=== PATIENT | female | born 1965 | race Caucasian/White ===

== ENCOUNTER 2021-06-10 16:26 | Inpatient (IN) | payer MEDICAID ==
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
--- NOTE | 2021-06-11 09:06 | Consultation ---
History of Present Illness - Reason for Consult Consult date: 06/11/21 Medical consult Requesting physician: YOSVNAY TAVERAS - History of Present Illness 56-year-old -Slov[place] female patient with significant past medical history of substance abuse with cocaine, schizophrenia, bipolar osteoarthritis status post bilateral knee replacement obesity status post gastric bypass surgery and hypertension was admitted [facility] to evaluate and manage suicidal ideation and psych problems Hospitalist service was consulted for medical management The time of my evaluation patient is confused pulled off all her clots Drowsy, unable to communicate or give history. Patient was not cooperative for evaluation Past History Past Medical History: arthritis, diabetes (Resolved), hypertension, other (Morbid obesity, schizophrenia, bipolar) Past Surgical History: Other (Bilateral knee replacement. Gastric bypass surgery) Social history: other (Recreational drug use cocaine) Family history: no significant family history Medications and Allergies Allergies Allergy/AdvReac Type Severity Reaction Status Date / Time promethazine [From Phenergan] Allergy Unknown Verified 06/11/21 05:07 Home Medications Medication Instructions Recorded Confirmed Last Taken Type Naproxen [Naprosyn TAB] 500 mg PO BID 06/11/21 06/11/21 Unknown History traMADoL [Ultram 50 MG tab] 50 mg PO Q8HR PRN 06/11/21 06/11/21 Unknown History Review of Systems ROS unobtainable: due to mental status (Patient is confused, not able to communicate or respond to simple questions) Exam - Constitutional Vitals: Temp Pulse Resp BP Pulse Ox 99.6 F 93 H 16 120/73 100 06/11/21 03:00 06/11/21 03:00 06/11/21 03:00 06/11/21 03:00 06/11/21 03:00 General appearance: Present: mild distress, other (Confused, pulled off her clothes and naked, noncommunicative,) - EENT Eyes: Present: PERRL, EOM intact - Respiratory Respiratory effort: normal Respiratory: bilateral: diminished, negative: rales, wheezing - Cardiovascular Rhythm: regular Heart Sounds: Present: S1 & S2 - Extremities Extremities: no ischemia, No edema - Abdominal General gastrointestinal: Present: soft, non-tender, non-distended, normal bowel sounds - Integumentary Integumentary: Present: clear, warm - Musculoskeletal Musculoskeletal: other - Psychiatric Psychiatric: agitated, other - Neurologic Neurologic: moves all extremities Results - Labs Labs: Abnormal lab results 06/11/21 Range/Units 06:01 POC Glucose 108 H (70-105) mg/dL Assessment and Plan --Hypertension; Clonidine as needed, start low-dose hydralazine 10 mg 3 times a day Hold if the blood pressure is less than 110 systolic --History of arthritis; supportive care Pain medications as needed Start with Tylenol 650 mg every 6 hours as needed for pain --History of cocaine abuse; Urine drug screen, supportive care --DVT prophylaxis; SCDs while resting --Full CODE STATUS We will closely monitor patient and adjust the management as needed Plan of care reviewed with the patient's nurse Thank you for this consultation We will follow the patient along with you Call us with questions or concerns
[2021-06-11] MEDS ORDERED: LORazepam 2 MG/ML VIAL IV PRN (09:30)
[2021-06-11] MEDS: SERTRALINE 25 MG TAB PO SCH (09:37)
[2021-06-11] MEDS ORDERED: cloNIDine 0.1 MG TAB PO PRN (10:00)
[2021-06-11] MEDS: traZODone 50 MG TAB PO SCH (21:30)
[2021-06-11 22:57] LABS: Basophils % (Auto) 0.5 % (0.0-1.8); Eosinophils # (Auto) 0.5 K/mm3 (0.0-0.4); Eosinophils % (Auto) 9.2 % (0.0-4.3); Hematocrit 33.4 % (30.3-42.9); Hemoglobin 10.3 gm/dl (10.1-14.3); Lymphocytes # (Auto) 1.8 K/mm3 (1.2-5.4); Lymphocytes % (Auto) 34.8 % (13.4-35.0); Mean Corpuscular HGB Conc 31 % (30-34); Mean Corpuscular Volume 76 fl (79-97); Monocytes # (Auto) 0.7 K/mm3 (0.0-0.8); Monocytes % (Auto) 13.2 % (0.0-7.3); Platelet Count 396 K/mm3 (140-440); Red Blood Count 4.43 M/mm3 (3.65-5.03); Red Cell Distribution Width 18.9 % (13.2-15.2)
[2021-06-12 02:51] LABS: Alanine Aminotransferase 13 units/L (7-56); Albumin 3.8 g/dL (3.9-5); BUN/Creatinine Ratio 21; Blood Urea Nitrogen 17 mg/dL (7-17); Calcium 9.2 mg/dL (8.4-10.2); Hemolysis Index 53
[2021-06-12 05:09] LABS: Chol/HDL Ratio 2.92 %; HDL Cholesterol 51 mg/dL (40-59); LDL Cholesterol,Direct 84 mg/dL (50-130)
[2021-06-12] MEDS ORDERED: oxyCODONE /ACETAMINOPHEN 5-325MG TAB PO ONE (05:16)
--- NOTE | 2021-06-12 08:54 | Progress Note ---
Subjective Date of service: 06/12/21 Subjective Comment: 06/12/2021: The patient was seen in her room getting ready for breakfast, she is calm. The patient reports feeling better, she is remorseful for her behavior yesterday. She reports sleep and appetite as good. She complain of bilateral kn ee pain; history of bilateral knee replacement. ( nurse is aware for medical consult.) The patient denies having craving fro crack, she denies any current suicidal/homicidal ideation and denies hallucinations. Per nurse, the patient had a quiet night. No changes made today. REVIEW OF SYSTEMS Constitutional: Negative for weight loss ENT: Negative for stridor Respiratory: Negative for cough or hemoptysis All other systems reviewed and are negative MENTAL STATUS EXAMINATION General Appearance and Behavior: Age appropriate, good hygiene, wearing appropriate clothes. Cooperation: Cooperative Psychomotor Behavior: Psychomotor normal Mood: calm Affect and affective range: congruent with stated mood, tearful Thought Process: goal directed Thought Content: Not suicidal Speech: Normal volume, Regular rate and rhythm, Suicidal Ideation: Denies Homicidal Ideation: Denies Hallucinations: Denies Delusions: None Impulse Control: Questionable Insight and Judgment: Limited insight, fair judgment Memory: unimpaired Attention: Distractible Orientation: alert and oriented Assessment and Plan (1) Bipolar disorder, current episode depressed severe- F31.4 ( 2 ) Cocaine use disorder- F14.20 Treatment Plan Patient admitted for inpatient psychiatric evaluation, medication adjustment and close monitoring The patient's behavior, mood, sleep and appetite will be closely monitored. Patient enrolled in individual and group therapeutic sessions and encouraged to attend. Patient provided with a safe and structured environment. Patient's physical health needs will be addressed by the Hospitalist. Hospitalist Consulted Labs including CBC, CMP, Lipid profile and Hemoglobin A1C levels ordered for baseline reference Social Assessment will be completed and the Linotype Machinist will work with patient and family to ensure a suitable and safe disposition Medication adjustment will be made as clinically indicated No changes made today Continue Ativan 2mg IM Q 4 hours PRN for agitation Continue Clonidine 0.1mg po Q 6 hours for agitation Continue Vistaril 50mg po Q 6 hours for anxiety Continue Zoloft 25mg po Q daily for depression Continue Trazodone 50mg po QHS Usual Wellness Rastafari/Preservation: - Start Trazodone 50 mg po QHS & 50 mg po QHS PRN between 10 PM & 2 AM for insomnia - Start Melatonin 5 mg po QHS to promote circadian rhythm The patient agreed on the treatment plan, understood the risk, benefit, alternative treatment, potential consequence of no treatment, and gave informed consent. Estimated days: 5 Post hospital care: primary care provider, psychiatric provider Case staffed with Dr. Henderson Legal Status: Voluntary Reaction to Hospitalization: Accepting Medications and Allergies Medications and Allergies Allergies Allergy/AdvReac Type Severity Reaction Status Date / Time promethazine [From Phenergan] Allergy Unknown Verified 06/11/21 05:07 Home Medications Medication Instructions Recorded Confirmed Last Taken Type Naproxen [Naprosyn TAB] 500 mg PO BID 06/11/21 06/11/21 Unknown History traMADoL [Ultram 50 MG tab] 50 mg PO Q8HR PRN 06/11/21 06/11/21 Unknown History Active Meds: Active Medications Clonidine HCl (Clonidine 0.1 Mg Tab) 0.1 mg PO Q4H PRN PRN Reason: Anxiety Last Admin: 06/11/21 09:36 Dose: 0.1 mg Documented by: Hydroxyzine Pamoate (Hydroxyzine Pamoate 50 Mg Cap) 50 mg PO Q6H PRN PRN Reason: Anxiety Lorazepam (Lorazepam 2 Mg/Ml Vial) 2 mg IV Q4H PRN PRN Reason: Agitation Last Admin: 06/11/21 09:26 Dose: 2 mg Documented by: Sertraline HCl (Sertraline 25 Mg Tab) 25 mg PO QDAY [facility] Last Admin: 06/11/21 09:37 Dose: 25 mg Documented by: Trazodone HCl (Trazodone 50 Mg Tab) 50 mg PO QHS [facility] Last Admin: 06/11/21 21:30 Dose: 50 mg Documented by: Results - Results Labs/Vitals: Laboratory Last Values WBC 5.2 K/mm3 (4.5-11.0) 06/11/21 Unknown RBC 4.43 M/mm3 (3.65-5.03) 06/11/21 Unknown Hgb 10.3 gm/dl (10.1-14.3) 06/11/21 Unknown Hct 33.4 % (30.3-42.9) 06/11/21 Unknown MCV 76 fl (79-97) L 06/11/21 Unknown MCH 23 pg (28-32) L 06/11/21 Unknown MCHC 31 % (30-34) 06/11/21 Unknown RDW 18.9 % (13.2-15.2) H 06/11/21 Unknown Plt Count 396 K/mm3 (140-440) 06/11/21 Unknown Lymph % (Auto) 34.8 % (13.4-35.0) 06/11/21 Unknown Mckean % (Auto) 13.2 % (0.0-7.3) H 06/11/21 Unknown Eos % (Auto) 9.2 % (0.0-4.3) H 06/11/21 Unknown Baso % (Auto) 0.5 % (0.0-1.8) 06/11/21 Unknown Lymph # (Auto) 1.8 K/mm3 (1.2-5.4) 06/11/21 Unknown Mckean # (Auto) 0.7 K/mm3 (0.0-0.8) 06/11/21 Unknown Eos # (Auto) 0.5 K/mm3 (0.0-0.4) H 06/11/21 Unknown Baso # (Auto) 0.0 K/mm3 (0.0-0.1) 06/11/21 Unknown Seg Neutrophils % 42.3 % (40.0-70.0) 06/11/21 Unknown Seg Neutrophils # 2.2 K/mm3 (1.8-7.7) 06/11/21 Unknown Sodium 137 mmol/L (137-145) 06/11/21 Unknown Potassium 4.6 mmol/L (3.6-5.0) 06/11/21 Unknown Chloride 103.6 mmol/L (98-107) 06/11/21 Unknown Carbon Dioxide 18 mmol/L (22-30) L 06/11/21 Unknown Anion Gap 20 mmol/L 06/11/21 Unknown BUN 17 mg/dL (7-17) 06/11/21 Unknown Creatinine 0.8 mg/dL (0.6-1.2) 06/11/21 Unknown Estimated GFR > 60 ml/min 06/11/21 Unknown BUN/Creatinine Ratio 21 % 06/11/21 Unknown Glucose 75 mg/dL (65-100) 06/11/21 Unknown POC Glucose 108 mg/dL (70-105) H 06/11/21 06:01 Calcium 9.2 mg/dL (8.4-10.2) 06/11/21 Unknown Total Bilirubin 0.20 mg/dL (0.1-1.2) 06/11/21 Unknown AST 30 units/L (5-40) 06/11/21 Unknown ALT 13 units/L (7-56) 06/11/21 Unknown Alkaline Phosphatase 130 units/L (35-129) H 06/11/21 Unknown Total Protein 7.0 g/dL (6.3-8.2) 06/11/21 Unknown Albumin 3.8 g/dL (3.9-5) L 06/11/21 Unknown Albumin/Globulin Ratio 1.2 % 06/11/21 Unknown Triglycerides 74 mg/dL (2-149) 06/11/21 Unknown Cholesterol 149 mg/dL (50-199) 06/11/21 Unknown LDL Cholesterol Direct 84 mg/dL (50-130) 06/11/21 Unknown HDL Cholesterol 51 mg/dL (40-59) 06/11/21 Unknown Cholesterol/HDL Ratio 2.92 % 06/11/21 Unknown Last Vital Signs Temp 98.0 F 06/11/21 22:00 Pulse 74 06/11/21 22:00 Resp 20 06/11/21 22:00 BP 95/71 06/11/21 22:00 Pulse Ox 98 06/11/21 22:00
[2021-06-12] MEDS: SERTRALINE 25 MG TAB PO SCH (10:27)
[2021-06-12 16:17] LABS: Hepatitis C Virus Antibody Non-Reactive (NonReactive)
[2021-06-12 16:27] LABS: Hepatitis B Surface Antigen Nonreactive (Negative)
[2021-06-12] MEDS: ACETAMINOPHEN 325 MG TAB PO PRN (21:01)
[2021-06-12] MEDS: traZODone 50 MG TAB PO SCH (21:02)
[2021-06-13] MEDS ORDERED: traMADol 50 MG TAB PO PRN ×2 (01:00→09:00)
[2021-06-13] MEDS: ACETAMINOPHEN 325 MG TAB PO PRN ×2 (09:17→16:57)
[2021-06-13] MEDS: SERTRALINE 25 MG TAB PO SCH (09:17)
--- NOTE | 2021-06-13 09:30 | Progress Note ---
Subjective Date of service: 06/13/21 Subjective Comment: 06/12/2021: The patient was seen in her room getting ready for breakfast, she is calm. The patient reports feeling better, she is remorseful for her behavior yesterday. She reports sleep and appetite as good. She complain of bilateral knee pain; history of bilateral knee replacement. ( nurse is aware for medical consult.) The patient denies having craving fro crack, she denies any current suicidal/homicidal ideation and denies hallucinations. Per nurse, the patient had a quiet night. No changes made today. 06/13/2021: The patient was seen in the activity room, she continues to complain of left hip pain and right knee pain. The patient is angry, stating she wants to go home. She denies having any current crack cravings and denies SI/HI/AVHs. REVIEW OF SYSTEMS Constitutional: Negative for weight loss ENT: Negative for stridor Respiratory: Negative for cough or hemoptysis All other systems reviewed and are negative MENTAL STATUS EXAMINATION General Appearance and Behavior: Age appropriate, good hygiene, wearing appropriate clothes. Cooperation: Cooperative Psychomotor Behavior: Psychomotor normal Mood: "angry" Affect and affective range: congruent with stated mood, tearful Thought Process: goal directed Thought Content: Not suicidal Speech: Normal volume, Regular rate and rhythm, Suicidal Ideation: Denies Homicidal Ideation: Denies Hallucinations: Denies Delusions: None Impulse Control: Questionable Insight and Judgment: Limited insight, fair judgment Memory: unimpaired Attention: Distractible Orientation: alert and oriented Assessment and Plan (1) Bipolar disorder, current episode depressed severe- F31.4 ( 2 ) Cocaine use disorder- F14.20 Treatment Plan Patient admitted for inpatient psychiatric evaluation, medication adjustment and close monitoring The patient's behavior, mood, sleep and appetite will be closely monitored. Patient enrolled in individual and group therapeutic sessions and encouraged to attend. Patient provided with a safe and structured environment. Patient's physical health needs will be addressed by the Hospitalist. Hospitalist Consulted Labs including CBC, CMP, Lipid profile and Hemoglobin A1C levels ordered for baseline reference Social Assessment will be completed and the Cantilever Crane Operator will work with patient and family to ensure a suitable and safe disposition Medication adjustment will be made as clinically indicated No changes made today Continue Ativan 2mg IM Q 4 hours PRN for agitation Continue Clonidine 0.1mg po Q 6 hours for agitation Continue Vistaril 50mg po Q 6 hours for anxiety Continue Zoloft 25mg po Q daily for depression Continue Trazodone 50mg po QHS Usual Wellness Quaker/Preservation: - Start Trazodone 50 mg po QHS & 50 mg po QHS PRN between 10 PM & 2 AM for insomnia - Start Melatonin 5 mg po QHS to promote circadian rhythm The patient agreed on the treatment plan, understood the risk, benefit, alternative treatment, potential consequence of no treatment, and gave informed consent. Estimated days: 5 Post hospital care: primary care provider, psychiatric provider Case staffed with Dr. Henderson Legal Status: Voluntary Reaction to Hospitalization: Accepting Medications and Allergies Medications and Allergies Allergies Allergy/AdvReac Type Severity Reaction Status Date / Time promethazine [From Phenergan] Allergy Unknown Verified 06/11/21 05:07 Home Medications Medication Instructions Recorded Confirmed Last Taken Type Naproxen [Naprosyn TAB] 500 mg PO BID 06/11/21 06/11/21 Unknown History traMADoL [Ultram 50 MG tab] 50 mg PO Q8HR PRN 06/11/21 06/11/21 Unknown History Active Meds: Active Medications Acetaminophen (Acetaminophen 325 Mg Tab) 650 mg PO Q6H PRN PRN Reason: Pain, Mild (1-3) Last Admin: 06/13/21 09:17 Dose: 650 mg Documented by: Clonidine HCl (Clonidine 0.1 Mg Tab) 0.1 mg PO Q4H PRN PRN Reason: Anxiety Last Admin: 06/11/21 09:36 Dose: 0.1 mg Documented by: Hydroxyzine Pamoate (Hydroxyzine Pamoate 50 Mg Cap) 50 mg PO Q6H PRN PRN Reason: Anxiety Last Admin: 06/12/21 21:02 Dose: 50 mg Documented by: Lorazepam (Lorazepam 2 Mg/Ml Vial) 2 mg IV Q4H PRN PRN Reason: Agitation Last Admin: 06/11/21 09:26 Dose: 2 mg Documented by: Naproxen (Naproxen 500 Mg Tab) 500 mg PO BID [facility] Sertraline HCl (Sertraline 25 Mg Tab) 25 mg PO QDAY [facility] Last Admin: 06/13/21 09:17 Dose: 25 mg Documented by: Tramadol HCl (Tramadol 50 Mg Tab) 50 mg PO Q8H PRN PRN Reason: Pain , Severe (7-10) Trazodone HCl (Trazodone 50 Mg Tab) 50 mg PO QHS [facility] Last Admin: 06/12/21 21:02 Dose: 50 mg Documented by: Results - Results Labs/Vitals: Laboratory Last Values WBC 5.2 K/mm3 (4.5-11.0) 06/11/21 Unknown RBC 4.43 M/mm3 (3.65-5.03) 06/11/21 Unknown Hgb 10.3 gm/dl (10.1-14.3) 06/11/21 Unknown Hct 33.4 % (30.3-42.9) 06/11/21 Unknown MCV 76 fl (79-97) L 06/11/21 Unknown MCH 23 pg (28-32) L 06/11/21 Unknown MCHC 31 % (30-34) 06/11/21 Unknown RDW 18.9 % (13.2-15.2) H 06/11/21 Unknown Plt Count 396 K/mm3 (140-440) 06/11/21 Unknown Lymph % (Auto) 34.8 % (13.4-35.0) 06/11/21 Unknown Power % (Auto) 13.2 % (0.0-7.3) H 06/11/21 Unknown Eos % (Auto) 9.2 % (0.0-4.3) H 06/11/21 Unknown Baso % (Auto) 0.5 % (0.0-1.8) 06/11/21 Unknown Lymph # (Auto) 1.8 K/mm3 (1.2-5.4) 06/11/21 Unknown Power # (Auto) 0.7 K/mm3 (0.0-0.8) 06/11/21 Unknown Eos # (Auto) 0.5 K/mm3 (0.0-0.4) H 06/11/21 Unknown Baso # (Auto) 0.0 K/mm3 (0.0-0.1) 06/11/21 Unknown Seg Neutrophils % 42.3 % (40.0-70.0) 06/11/21 Unknown Seg Neutrophils # 2.2 K/mm3 (1.8-7.7) 06/11/21 Unknown Sodium 137 mmol/L (137-145) 06/11/21 Unknown Potassium 4.6 mmol/L (3.6-5.0) 06/11/21 Unknown Chloride 103.6 mmol/L (98-107) 06/11/21 Unknown Carbon Dioxide 18 mmol/L (22-30) L 06/11/21 Unknown Anion Gap 20 mmol/L 06/11/21 Unknown BUN 17 mg/dL (7-17) 06/11/21 Unknown Creatinine 0.8 mg/dL (0.6-1.2) 06/11/21 Unknown Estimated GFR > 60 ml/min 06/11/21 Unknown BUN/Creatinine Ratio 21 % 06/11/21 Unknown Glucose 75 mg/dL (65-100) 06/11/21 Unknown POC Glucose 108 mg/dL (70-105) H 06/11/21 06:01 Calcium 9.2 mg/dL (8.4-10.2) 06/11/21 Unknown Total Bilirubin 0.20 mg/dL (0.1-1.2) 06/11/21 Unknown AST 30 units/L (5-40) 06/11/21 Unknown ALT 13 units/L (7-56) 06/11/21 Unknown Alkaline Phosphatase 130 units/L (35-129) H 06/11/21 Unknown Total Protein 7.0 g/dL (6.3-8.2) 06/11/21 Unknown Albumin 3.8 g/dL (3.9-5) L 06/11/21 Unknown Albumin/Globulin Ratio 1.2 % 06/11/21 Unknown Triglycerides 74 mg/dL (2-149) 06/11/21 Unknown Cholesterol 149 mg/dL (50-199) 06/11/21 Unknown LDL Cholesterol Direct 84 mg/dL (50-130) 06/11/21 Unknown HDL Cholesterol 51 mg/dL (40-59) 06/11/21 Unknown Cholesterol/HDL Ratio 2.92 % 06/11/21 Unknown TSH 1.450 mlU/mL (0.270-4.200) 06/12/21 11:08 Hepatitis A IgM Ab Non-reactive (NonReactive) 06/12/21 11:08 Hep Bs Antigen Nonreactive (Negative) 06/12/21 11:08 Hep B Core IgM Ab Non-reactive (NonReactive) 06/12/21 11:08 Hepatitis C Antibody Non-reactive (NonReactive) 06/12/21 11:08 Last Vital Signs Temp 99.0 F 06/13/21 09:03 Pulse 94 H 06/13/21 09:03 Resp 18 06/13/21 09:03 BP 123/61 06/13/21 09:03 Pulse Ox 99 06/13/21 09:03
[2021-06-13] MEDS: NAPROXEN 500 MG TAB PO SCH ×2 (09:59→21:33)
--- NOTE | 2021-06-13 18:43 | Progress Note ---
Assessment and Plan Assessment and plan: --Hypertension; well controlled Continue current antihypertensives and as needed medications --History of arthritis; supportive care Continue pain medications as needed Patient will follow with her private orthopedic surgeon upon discharge --History of cocaine abuse; Patient counseled to quit recreational drug use --DVT prophylaxis; SCDs while resting --Full CODE STATUS Continue current management Plan of care reviewed with the patient and her nurse History Interval history: I have seen and examined the patient in the activity room in [facility] psych unit t his evening Patient's chart and medications reviewed Patient is complaining some pain in her right knee Alert and awake responding to simple questions appropriately Hospitalist Physical - Constitutional Vitals: Temp Pulse Resp BP Pulse Ox 99.0 F 94 H 18 123/61 99 06/13/21 09:03 06/13/21 09:03 06/13/21 09:03 06/13/21 09:03 06/13/21 09:03 General appearance: Present: no acute distress, well-nourished, obese, other (Alert and awake responding to simple questions appropriately) - EENT Eyes: Present: PERRL, EOM intact - Neck Neck: Present: supple, normal ROM - Respiratory Respiratory effort: normal Respiratory: bilateral: diminished, negative: rales, rhonchi, wheezing - Cardiovascular Rhythm: regular Heart Sounds: Present: S1 & S2 - Extremities Extremities: no ischemia, No edema, abnormal (Right knee, old postop changes) - Abdominal General gastrointestinal: soft, non-tender, non-distended, normal bowel sounds - Integumentary Integumentary: Present: clear, warm - Psychiatric Psychiatric: appropriate mood/affect, cooperative - Neurologic Neurologic: moves all extremities Results - Labs CBC & Chem 7: 06/11/21 Unknown 06/11/21 Unknown Labs: Laboratory Last Values WBC 5.2 K/mm3 (4.5-11.0) 06/11/21 Unknown RBC 4.43 M/mm3 (3.65-5.03) 06/11/21 Unknown Hgb 10.3 gm/dl (10.1-14.3) 06/11/21 Unknown Hct 33.4 % (30.3-42.9) 06/11/21 Unknown MCV 76 fl (79-97) L 06/11/21 Unknown MCH 23 pg (28-32) L 06/11/21 Unknown MCHC 31 % (30-34) 06/11/21 Unknown RDW 18.9 % (13.2-15.2) H 06/11/21 Unknown Plt Count 396 K/mm3 (140-440) 06/11/21 Unknown Lymph % (Auto) 34.8 % (13.4-35.0) 06/11/21 Unknown [place] % (Auto) 13.2 % (0.0-7.3) H 06/11/21 Unknown Eos % (Auto) 9.2 % (0.0-4.3) H 06/11/21 Unknown Baso % (Auto) 0.5 % (0.0-1.8) 06/11/21 Unknown Lymph # (Auto) 1.8 K/mm3 (1.2-5.4) 06/11/21 Unknown [place] # (Auto) 0.7 K/mm3 (0.0-0.8) 06/11/21 Unknown Eos # (Auto) 0.5 K/mm3 (0.0-0.4) H 06/11/21 Unknown Baso # (Auto) 0.0 K/mm3 (0.0-0.1) 06/11/21 Unknown Seg Neutrophils % 42.3 % (40.0-70.0) 06/11/21 Unknown Seg Neutrophils # 2.2 K/mm3 (1.8-7.7) 06/11/21 Unknown Sodium 137 mmol/L (137-145) 06/11/21 Unknown Potassium 4.6 mmol/L (3.6-5.0) 06/11/21 Unknown Chloride 103.6 mmol/L (98-107) 06/11/21 Unknown Carbon Dioxide 18 mmol/L (22-30) L 06/11/21 Unknown Anion Gap 20 mmol/L 06/11/21 Unknown BUN 17 mg/dL (7-17) 06/11/21 Unknown Creatinine 0.8 mg/dL (0.6-1.2) 06/11/21 Unknown Estimated GFR > 60 ml/min 06/11/21 Unknown BUN/Creatinine Ratio 21 % 06/11/21 Unknown Glucose 75 mg/dL (65-100) 06/11/21 Unknown POC Glucose 108 mg/dL (70-105) H 06/11/21 06:01 Calcium 9.2 mg/dL (8.4-10.2) 06/11/21 Unknown Total Bilirubin 0.20 mg/dL (0.1-1.2) 06/11/21 Unknown AST 30 units/L (5-40) 06/11/21 Unknown ALT 13 units/L (7-56) 06/11/21 Unknown Alkaline Phosphatase 130 units/L (35-129) H 06/11/21 Unknown Total Protein 7.0 g/dL (6.3-8.2) 06/11/21 Unknown Albumin 3.8 g/dL (3.9-5) L 06/11/21 Unknown Albumin/Globulin Ratio 1.2 % 06/11/21 Unknown Triglycerides 74 mg/dL (2-149) 06/11/21 Unknown Cholesterol 149 mg/dL (50-199) 06/11/21 Unknown LDL Cholesterol Direct 84 mg/dL (50-130) 06/11/21 Unknown HDL Cholesterol 51 mg/dL (40-59) 06/11/21 Unknown Cholesterol/HDL Ratio 2.92 % 06/11/21 Unknown TSH 1.450 mlU/mL (0.270-4.200) 06/12/21 11:08 Hepatitis A IgM Ab Non-reactive (NonReactive) 06/12/21 11:08 Hep Bs Antigen Nonreactive (Negative) 06/12/21 11:08 Hep B Core IgM Ab Non-reactive (NonReactive) 06/12/21 11:08 Hepatitis C Antibody Non-reactive (NonReactive) 06/12/21 11:08 Mustafa/IV: Voiding Method Toilet Active Medications - Current Medications Current Medications: Generic Name Dose Route Start Last Admin Trade Name Tuckerq PRN Reason Stop Dose Admin Acetaminophen 650 mg 06/12/21 19:38 06/13/21 16:57 Acetaminophen 325 Mg Tab PO 650 mg Q6H PRN Administration Pain, Mild (1-3) Clonidine HCl 0.1 mg 06/11/21 10:00 06/11/21 09:36 Clonidine 0.1 Mg Tab PO 0.1 mg Q4H PRN Administration Anxiety Hydroxyzine Pamoate 50 mg 06/11/21 10:00 06/12/21 21:02 Hydroxyzine Pamoate 50 Mg Cap PO 50 mg Q6H PRN Administration Anxiety Lorazepam 2 mg 06/11/21 09:30 06/11/21 09:26 Lorazepam 2 Mg/Ml Vial IV 2 mg Q4H PRN Administration Agitation Naproxen 500 mg 06/13/21 10:00 06/13/21 09:59 Naproxen 500 Mg Tab PO 500 mg BID TAE Administration Sertraline HCl 25 mg 06/11/21 10:00 06/13/21 09:17 Sertraline 25 Mg Tab PO 25 mg QDAY TAE Administration Tramadol HCl 50 mg 06/13/21 09:00 Tramadol 50 Mg Tab PO Q8H PRN Pain , Severe (7-10) Trazodone HCl 50 mg 06/11/21 22:00 06/12/21 21:02 Trazodone 50 Mg Tab PO 50 mg QHS TAE Administration
[2021-06-13] MEDS: traZODone 50 MG TAB PO SCH (21:33)
[2021-06-14] MEDS: SERTRALINE 25 MG TAB PO SCH (09:34)
[2021-06-14] MEDS: NAPROXEN 500 MG TAB PO SCH (09:35)
--- NOTE | 2021-06-14 09:49 | Discharge Summary ---
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 The patient's mood, cognition, behavior, moral support are improved and stabilized. St the time of discharge, the patient had no endangering behavior and no debilitating adverse effects. The patient agreed on potential consequences of no treatment and gave informed consent. 06/12/2021: The patient was seen in her room getting ready for breakfast, she is calm. The patient reports feeling better, she is remorseful for her behavior yesterday. She reports sleep and appetite as good. She complain of bilateral knee pain; history of bilateral knee replacement. ( nurse is aware for medical consult.) The patient denies having craving fro crack, she denies any current suicidal/homicidal ideation and denies hallucinations. Per nurse, the patient had a quiet night. No changes made today. 06/13/2021: The patient was seen in the activity room, she continues to complain of left hip pain and right knee pain. The patient is angry, stating she wants to go home. She denies having any current crack cravings and denies SI/HI/AVHs. 06/14/2021 The patient was seen today. She is calm and cooperative. She is polite. She says she's ready to go home. She denies SI/HI or hallucinations of any kind. She says "I feel a lot better. My mom in 2019 and I had a hard time dealing with it." Disposition: 01 HOME / SELF CARE / HOMELESS Time spent for discharge: 35 Allergies/Adverse Reactions: Allergies promethazine [From Phenergan] Allergy (Verified 06/11/21 05:07) Unknown Vital Signs: Last Vital Signs Temp 99.0 F 06/13/21 19:19 Pulse 87 06/13/21 19:19 Resp 18 06/13/21 19:19 BP 117/68 06/13/21 19:19 Pulse Ox 99 06/13/21 19:19 Last Lab: Laboratory Last Values WBC 5.2 K/mm3 (4.5-11.0) 06/11/21 Unknown RBC 4.43 M/mm3 (3.65-5.03) 06/11/21 Unknown Hgb 10.3 gm/dl (10.1-14.3) 06/11/21 Unknown Hct 33.4 % (30.3-42.9) 06/11/21 Unknown MCV 76 fl (79-97) L 06/11/21 Unknown MCH 23 pg (28-32) L 06/11/21 Unknown MCHC 31 % (30-34) 06/11/21 Unknown RDW 18.9 % (13.2-15.2) H 06/11/21 Unknown Plt Count 396 K/mm3 (140-440) 06/11/21 Unknown Lymph % (Auto) 34.8 % (13.4-35.0) 06/11/21 Unknown [place] % (Auto) 13.2 % (0.0-7.3) H 06/11/21 Unknown Eos % (Auto) 9.2 % (0.0-4.3) H 06/11/21 Unknown Baso % (Auto) 0.5 % (0.0-1.8) 06/11/21 Unknown Lymph # (Auto) 1.8 K/mm3 (1.2-5.4) 06/11/21 Unknown [place] # (Auto) 0.7 K/mm3 (0.0-0.8) 06/11/21 Unknown Eos # (Auto) 0.5 K/mm3 (0.0-0.4) H 06/11/21 Unknown Baso # (Auto) 0.0 K/mm3 (0.0-0.1) 06/11/21 Unknown Seg Neutrophils % 42.3 % (40.0-70.0) 06/11/21 Unknown Seg Neutrophils # 2.2 K/mm3 (1.8-7.7) 06/11/21 Unknown Sodium 137 mmol/L (137-145) 06/11/21 Unknown Potassium 4.6 mmol/L (3.6-5.0) 06/11/21 Unknown Chloride 103.6 mmol/L (98-107) 06/11/21 Unknown Carbon Dioxide 18 mmol/L (22-30) L 06/11/21 Unknown Anion Gap 20 mmol/L 06/11/21 Unknown BUN 17 mg/dL (7-17) 06/11/21 Unknown Creatinine 0.8 mg/dL (0.6-1.2) 06/11/21 Unknown Estimated GFR > 60 ml/min 06/11/21 Unknown BUN/Creatinine Ratio 21 % 06/11/21 Unknown Glucose 75 mg/dL (65-100) 06/11/21 Unknown POC Glucose 108 mg/dL (70-105) H 06/11/21 06:01 Calcium 9.2 mg/dL (8.4-10.2) 06/11/21 Unknown Total Bilirubin 0.20 mg/dL (0.1-1.2) 06/11/21 Unknown AST 30 units/L (5-40) 06/11/21 Unknown ALT 13 units/L (7-56) 06/11/21 Unknown Alkaline Phosphatase 130 units/L (35-129) H 06/11/21 Unknown Total Protein 7.0 g/dL (6.3-8.2) 06/11/21 Unknown Albumin 3.8 g/dL (3.9-5) L 06/11/21 Unknown Albumin/Globulin Ratio 1.2 % 06/11/21 Unknown Triglycerides 74 mg/dL (2-149) 06/11/21 Unknown Cholesterol 149 mg/dL (50-199) 06/11/21 Unknown LDL Cholesterol Direct 84 mg/dL (50-130) 06/11/21 Unknown HDL Cholesterol 51 mg/dL (40-59) 06/11/21 Unknown Cholesterol/HDL Ratio 2.92 % 06/11/21 Unknown TSH 1.450 mlU/mL (0.270-4.200) 06/12/21 11:08 Hepatitis A IgM Ab Non-reactive (NonReactive) 06/12/21 11:08 Hep Bs Antigen Nonreactive (Negative) 06/12/21 11:08 Hep B Core IgM Ab Non-reactive (NonReactive) 06/12/21 11:08 Hepatitis C Antibody Non-reactive (NonReactive) 06/12/21 11:08 Core Measure Documentation - Palliative Care Palliative Care/ Comfort Measures: Not Applicable - Core Measures Any of the following diagnoses?: none Exam - Constitutional Vitals: Temp Pulse Resp BP Pulse Ox 99.0 F 87 18 117/68 99 06/13/21 19:19 06/13/21 19:19 06/13/21 19:19 06/13/21 19:19 06/13/21 19:19 General appearance: Present: no acute distress - EENT Eyes: Present: PERRL, EOM intact ENT: hearing intact, clear oral mucosa - Neck Neck: Present: supple, normal ROM - Respiratory Respiratory effort: normal Plan Activity: advance as tolerated Weight Bearing Status: Weight Bear as Tolerated Care Plan Goals: Maintain good and stable mental health Plan of Treatment: The patient should be compliant with medications, not to use drugs, and not to drink alcohol. The patient understands that if suicidal ideas, homicidal ideas or any endangering feeling arise, the patient should seek assistance including, but not limited to crisis hotline, and emergency room. Assessment: Bipolar Disorder Follow up with: PRIMARY CARE, [Primary Care Provider] - 7 Days Prescriptions: traZODone [Desyrel] 50 mg PO QHS #30 tablet hydrOXYzine PAMOATE [Vistaril] 50 mg PO Q6H PRN #120 capsule PRN Reason: Anxiety Sertraline [Zoloft] 25 mg PO QDAY #30 tablet
[2021-06-14 10:49] VITALS: BP 104/63
== END 2021-06-14 19:50 | disposition home or self-care (01) | DRG 885 ==
LOC: 3A 16:26 → UNDOADMIN 16:26 → 5A 06-11 03:42
PROVIDERS: ADMIT Psychiatry & Neurology Psychiatry; ATTEND Psychiatry & Neurology Psychiatry
DX: F31.4 Bipolar disorder, current episode depressed, severe, without psychotic features (principal); F20.9 Schizophrenia, unspecified; R45.851 Suicidal ideations; Z96.653 Presence of artificial knee joint, bilateral; E66.01 Morbid (severe) obesity due to excess calories; Z68.41 Body mass index [BMI] 40.0-44.9, adult; I10 Essential (primary) hypertension; Z88.8 Allergy status to other drugs, medicaments and biological substances; F14.90 Cocaine use, unspecified, uncomplicated
CPT/HCPCS: 36415; 80053; 80061; 80074; 82962; 84443; 85025; G0378; J2060; Q0177